=== PATIENT | female | born 1985 | race African-American/Black ===

== ENCOUNTER 2024-04-26 18:05 | Emergency (ER) | payer SELFPAY ==
[2024-04-26 18:12] VITALS: BP 168/101; PULSE 103; RESP 18; TEMP 98.8; BMI 49.2
[2024-04-26] MEDS ORDERED: ACETAMINOPHEN 325 MG TABLET (FP) ONE (19:23)
[2024-04-26] MEDS: ACETAMINOPHEN 500 MG TABLET (FP) PO ONE (19:34)
[2024-04-26] MEDS: HYDROXYUREA 500 MG CAPSULE PO STA (19:34)
== END 2024-04-26 20:05 | disposition home or self-care (01) ==
LOC: JER 18:05
DX: D57.1 Sickle-cell disease without crisis (principal)
CPT/HCPCS: 99283-25; J8999